=== PATIENT | male | born 1955 | race Caucasian/White ===

== ENCOUNTER 2020-01-31 12:15 | Emergency (ER) | payer MEDICARE, MEDICAID ==
[~2020-01-31] VITALS: Ht 190.5 cm; Wt 73.1 kg
[2020-01-31] MEDS ORDERED: ECOT81TA5 PO (12:24)
--- NOTE | 2020-01-31 13:02 | REP ---
Clinical: Right elbow pain and swelling. Technique: AP, lateral, bilateral oblique views of the right elbow. Findings: Lateral view best demonstrates moderate to significant posterior swelling consistent with bursitis. Mild age-related degenerative changes with subtle spurring at the coronoid process and olecranon. No periarticular calcifications or obvious loose bodies. No acute fracture dislocation. Impression: Posterior swelling consistent with bursitis. Electronically Signed by Ricardo Esqueda MD 01/31/2020 12:53 P
[2020-01-31 13:16] LABS: BASO # 0.1 10^3/uL (0.0-0.2); BASO % 0.6 % (0.0-1.0); EOS # 0.2 10^3/uL (0.0-0.5); EOS % 2.9 % (0.0-3.0); HEMATOCRIT 36.5 % (42.0-52.0); HEMOGLOBIN 11.9 g/dl (13.5-17.5); LYMPH # 1.1 10^3/uL (1.5-5.0); LYMPH % 13.5 % (24.0-44.0); MEAN CORPUSCULAR HEMOGLOBIN 31.5 pg (27.0-33.0); MEAN CORPUSCULAR HGB CONC 32.6 g/dl (32.0-36.5); MEAN CORPUSCULAR VOLUME 96.6 fl (80.0-96.0); MONO # 0.6 10^3/uL (0.0-0.8); MONO % 7.5 % (0.0-5.0); NEUTROPHILS # 5.9 10^3/uL (1.5-8.5); NEUTROPHILS % 75.2 % (36.0-66.0); PLATELET COUNT, AUTOMATED 202 10^3/uL (150-450); RED BLOOD COUNT 3.78 10^6/uL (4.30-6.10); WHITE BLOOD COUNT 7.8 10^3/uL (4.0-10.0)
[2020-01-31 13:25] LABS: BLOOD UREA NITROGEN 11 MG/DL (7-18); CALCIUM LEVEL 8.8 MG/DL (8.8-10.2); CARBON DIOXIDE LEVEL 26 MEQ/L (21-32); CHLORIDE LEVEL 110 MEQ/L (98-107); CREATININE FOR GFR 1.23 MG/DL (0.70-1.30); GLOMERULAR FILTRATION RATE > 60.0 (>49); GLUCOSE, FASTING 97 MG/DL (70-100); POTASSIUM SERUM 4.6 MEQ/L (3.5-5.1); SODIUM LEVEL 140 MEQ/L (136-145)
[2020-01-31 13:26] LABS: C REACTIVE PROTEIN QUANTITATIV < 0.30 MG/DL (0.00-0.30)
[2020-01-31] MEDS ORDERED: KEFL500C17 PO (14:23)
[2020-01-31 14:24] VITALS: BP 116/72
[2020-01-31 14:25] LABS: ERYTHROCYTE SEDIMENTATION RATE 8 mm/hr (0-20)
== END 2020-01-31 14:42 | disposition home or self-care (01) ==
LOC: M ED 12:15
DX: M70.21 Olecranon bursitis, right elbow (principal)

== ENCOUNTER 2020-02-08 10:55 | Emergency (ER) | payer MEDICARE, MEDICAID ==
[~2020-02-08] VITALS: Ht 190.5 cm; Wt 73.0 kg
[~2020-02-08 10:55] MED LIST: ECOT81TA5 PO; KEFL500C17 PO
[2020-02-08 12:14] LABS: BASO % 0.7 % (0.0-1.0); EOS # 0.2 10^3/uL (0.0-0.5); EOS % 3.7 % (0.0-3.0); HEMOGLOBIN 11.9 g/dl (13.5-17.5); LYMPH % 16.3 % (24.0-44.0); MEAN CORPUSCULAR HEMOGLOBIN 31.2 pg (27.0-33.0); MEAN CORPUSCULAR HGB CONC 33.1 g/dl (32.0-36.5); MEAN CORPUSCULAR VOLUME 94.5 fl (80.0-96.0); MONO # 0.5 10^3/uL (0.0-0.8); MONO % 7.7 % (0.0-5.0); NEUTROPHILS # 4.3 10^3/uL (1.5-8.5); NEUTROPHILS % 71.3 % (36.0-66.0); PLATELET COUNT, AUTOMATED 198 10^3/uL (150-450); RED BLOOD COUNT 3.81 10^6/uL (4.30-6.10)
[2020-02-08 12:48] VITALS: BP 120/78
[2020-02-08 13:01] LABS: ERYTHROCYTE SEDIMENTATION RATE 10 mm/hr (0-20)
== END 2020-02-08 12:52 | disposition home or self-care (01) ==
LOC: M ED 10:55
DX: M70.21 Olecranon bursitis, right elbow (principal); Z79.82 Long term (current) use of aspirin

== ENCOUNTER → 2021-01-21 | Outpatient (REF) ==
[2021-01-22 20:26] LABS: INFLUENZA A AMPLIFICATION NEGATIVE (NEGATIVE); INFLUENZA B AMPLIFICATION NEGATIVE (NEGATIVE)
== END ==
LOC: M LAB 12:54